=== PATIENT | male | born 1990 | race Two or more races ===

== ENCOUNTER 2024-01-15 07:37 | Outpatient (CLI) | payer OTHER | END 2024-01-15 07:45 | disposition home or self-care (01) | LOC: SONOGRAMA 07:37 | PROVIDERS: ATTEND Family Medicine | DX: R10.10 Upper abdominal pain, unspecified (principal) ==

== ENCOUNTER 2024-12-15 16:13 | Inpatient (IN) | payer OTHER ==
[~2024-12-15] VITALS: Ht 182.9 cm; Wt 104.3 kg
--- NOTE | 2024-12-15 16:16 | NUR ---
PACIENTE REFIERE FIEBRE, DOLOR DE CUERPO, DOLOR DE GARGANTA, DOLOR DE GENET, ESCALOFRIOS Y DIARREAS DESDE EL FERMIN
[2024-12-15] MEDS ORDERED: ADDERALL 20 MG20 MG PO (16:17)
--- NOTE | 2024-12-15 16:17 | NUR ---
PACIENTE CON RESULTADOS CBC WBC 20K
[2024-12-15] MEDS ORDERED: CEFTRIAXONE SODIUM 2,000 MG VIAL ONE (16:40)
[2024-12-15] MEDS ORDERED: DEXAMETHASONE SODIUM PHOSPHATE 4 MG/ML VIAL ONE (16:40)
[2024-12-15] MEDS ORDERED: ACETAMINOPHEN 500 MG GEL..CAP PO ONE ×2 (16:40→16:45)
[2024-12-15] MEDS ORDERED: CEFTRIAXONE SODIUM 2,000 MG VIAL IV ONE (16:45)
[2024-12-15] MEDS ORDERED: DEXAMETHASONE SODIUM PHOSPHATE 4 MG/ML VIAL IM ONE (16:45)
--- NOTE | 2024-12-15 17:10 | NUR ---
SE ORIENTA PTE SOBRE TX A SEGUIR, EL MISMO REFIERE ENTENDER. SE JASON MUSTRA DE LAB, SE CANALIZA Y SE ADMINISTRA VALERIE ARNOLDO ORDEN MEDICA
--- NOTE | 2024-12-15 17:11 | NUR ---
SE ORIENTA A PTE SOBRE TX MEDICO ORDENADO POR . SE REALIZA JASON DE MUESTRAS DE LAB ARNOLDO ORDEN MEDICA Y BAJO MEDIDAS ASEPTICAS. VENOPUNCION PATENTE BUSHRA DE EDEMA Y ERITEMA EN H/L BAJANDO IV FLUIDS POR REGULADOR. SE ADMINISTRAN MEDICAMENTOS ARNOLDO ORDEN MEDICA Y BAJO MEDIDAS ASEPTICAS. PTE PENDIENTE A RESULTADOS DE LAB. SE NOTIFICA ESTUDIO ORDENADO.
[2024-12-15 17:17] LABS: HEMATOCRIT 47.5 % (39.0-48.0); HEMOGLOBIN 16.2 g/dL (13-16.00); MEAN CORPUSCULAR HEMOGLOBIN 30.1 pg (27.00-32.0); MEAN CORPUSCULAR HGB CONC 34.2 g/dl (32.0-36.0); PLATELET COUNT 232 K/uL (150-450); RED CELL DISTRIBUTION WIDTH 13.3 % (11.5-14.5)
[2024-12-15 17:45] LABS: ALBUMIN 3.8 gm/dL (3.4-5.0); BILIRUBIN TOTAL 0.61 mg/dL (0.3-1.2); CALCIUM 9.5 mg/dL (8.5-10.1); CREATININE SERUM 1.09 mg/dL (0.70-1.30); GFR 77.44; GLOBULINA 4.4 G/DL (2.4-3.5); POTASSIUM 3.7 mEq/L (3.5-5.1); TOTAL PROTEIN 8.2 gm/dL (6.4-8.2)
[2024-12-15 18:31] LABS: URINE APPEARANCE Clear; URINE BILIRRUBIN Small (NEGATIVE); URINE BLOOD Negative; URINE COLOR Dark Yellow; URINE GLUCOSE Negative (NEGATIVE); URINE KETONE 15 (NEGATIVE); URINE LEUKOCYTE Negative; URINE NITRATE Negative; URINE UROBILINOGEN 0.2 E.U./dl
[2024-12-15 18:35] LABS: URINE BACTERIA 58.7 uL (0.0-1933); URINE EPITHELIAL CELLS 9.9 uL (0.0-38.8); URINE RBC 24.1 uL (0.0-20.8); URINE WBC 7.5 uL (0.0-23.2)
[2024-12-15 18:43] LABS: URINE CAST 0.14 uL (0.0-1.40); URINE PROTEIN 100 (NEGATIVE)
[2024-12-15] MEDS ORDERED: AZITHROMYCIN 500 MG in DEXTROSE 5 % IN WATER 250 ML IV SCH (19:44)
[2024-12-15] MEDS ORDERED: ONDANSETRON HCL 4 MG in 0.9 % SODIUM CHLORIDE 50 ML IV PRN (19:45)
[2024-12-15] MEDS ORDERED: FAMOTIDINE/PF 20 MG in 0.9 % SODIUM CHLORIDE 8 ML IV PUSH SCH (19:45)
[2024-12-15] MEDS ORDERED: ACETAMINOPHEN 500 MG GEL..CAP PO PRN (19:45)
[2024-12-15] MEDS ORDERED: VANCOMYCIN HCL 1,000 MG VIAL IV ONE (19:45)
[2024-12-15] MEDS ORDERED: 0.9 % SODIUM CHLORIDE 1,000 ML IV SCH (20:00)
[2024-12-15] MEDS ORDERED: AZITHROMYCIN 500 MG VIAL IV ONE (20:24)
[2024-12-15] MEDS ORDERED: VANCOMYCIN HCL 1,000 MG VIAL ONE (20:24)
[2024-12-15] MEDS ORDERED: FAMOTIDINE/PF 20 MG/2 ML VIAL ONE (20:25)
[2024-12-15 20:50] LABS: INR 1.05; PARTIAL THROMBOPLASTIN TIME 32.4 SECONDS (22.0-34.0); PROTHROMBIN TIME 11.4 SECONDS (9.0-11.5)
[2024-12-15 21:11] LABS: ABG PH 7.405 (7.35-7.45); ABG pCO2 34.9 mmHg (35-45); BASE EXCESS -2.6 mmol/l; BICARBONATE 21.3 mmol/l (23-25); Tco2 22.4 mmol/l
[2024-12-15 22:44] LABS: allen test SATISFACTORY; o2 21 %; puncture site RADIAL LEFT
[2024-12-15 23:52] VITALS: BP 120/75; O2SAT 100
[2024-12-16] MEDS ORDERED: AMPICILLIN SODIUM 2,000 MG in 0.9 % SODIUM CHLORIDE 100 ML IV SCH
[2024-12-16] MEDS ORDERED: ENOXAPARIN SODIUM 40 MG/0.4 ML SYRINGE SUBCUTANEO SCH (09:00)
[2024-12-16] MEDS ORDERED: LACTOBACILLUS ACIDOPHILUS 1 CAP CAP PO SCH (09:00)
[2024-12-16] MEDS ORDERED: AZITHROMYCIN 500 MG VIAL IV SCH (09:00)
[2024-12-16] MEDS ORDERED: CEFTRIAXONE SODIUM 2,000 MG in 0.9 % SODIUM CHLORIDE 100 ML IV SCH (09:00)
[2024-12-16 09:39] VITALS: BP 117/78; O2SAT 97
[2024-12-16] MEDS ORDERED: LACTOBACILLUS ACIDOPHILUS 1 CAP CAP PO ONE ×2 (12:09→16:27)
[2024-12-16 16:34] VITALS: BP 133/77; O2SAT 97
[2024-12-16 21:00] VITALS: BP 131/76
[2024-12-17] VITALS (11 sets, daily range): BP systolic 100–133; BP diastolic 50–85; O2SAT 90–100
[2024-12-17 07:26] LABS: HEMOGLOBIN 14.8 g/dL (13-16.00); MEAN CELL VOLUME 88.5 fL (80.0-100.00); MEAN CORPUSCULAR HEMOGLOBIN 30.5 pg (27.00-32.0); MEAN CORPUSCULAR HGB CONC 34.4 g/dl (32.0-36.0); PLATELET COUNT 245 K/uL (150-450); RED BLOOD COUNT 4.86 M/uL (4.00-6.00); RED CELL DISTRIBUTION WIDTH 13.7 % (11.5-14.5)
[2024-12-17] MEDS ORDERED: AZITHROMYCIN 500 MG VIAL IV ONE (08:18)
[2024-12-18 00:27] VITALS: O2SAT 98
[2024-12-18 03:42] VITALS: BP 101/58
[2024-12-18 05:32] LABS: HEMATOCRIT 42.5 % (39.0-48.0); HEMOGLOBIN 14.6 g/dL (13-16.00); MEAN CELL VOLUME 88.5 fL (80.0-100.00); MEAN CORPUSCULAR HEMOGLOBIN 30.5 pg (27.00-32.0); MEAN CORPUSCULAR HGB CONC 34.4 g/dl (32.0-36.0); PLATELET COUNT 255 K/uL (150-450); RED CELL DISTRIBUTION WIDTH 13.7 % (11.5-14.5)
[2024-12-18 05:40] VITALS: O2SAT 95
[2024-12-18] MEDS ORDERED: AZITHROMYCIN 500 MG VIAL IV ONE (08:21)
[2024-12-18 08:59] VITALS: O2SAT 90
[2024-12-18 09:15] VITALS: BP 112/78
[2024-12-18] MEDS ORDERED: INTESTINEX680 M1 PO (13:50)
[2024-12-18] MEDS ORDERED: ZITHROMAX500 MG PO (13:50)
== END 2024-12-18 18:15 | disposition home or self-care (01) | DRG 871 ==
LOC: ER 16:16 → SEC-K 21:37 → MEDJ 21:37 → SURH 21:37 → SEC-K 22:03 → MEDJ 12-16 16:12
PROVIDERS: General Practice; Internal Medicine Infectious Disease; ADMIT Internal Medicine; ATTEND Internal Medicine
PROC: BW28ZZZ Computerized Tomography (CT Scan) of Head (ICD-10-PCS; 2024-12-15)
PROC: BW24ZZZ Computerized Tomography (CT Scan) of Chest and Abdomen (ICD-10-PCS; 2024-12-16)
PROC: 4A12X4Z Monitoring of Cardiac Electrical Activity, External Approach (ICD-10-PCS; principal; 2024-12-17)
DX: A41.9 Sepsis, unspecified organism (principal); J15.7 Pneumonia due to Mycoplasma pneumoniae; E86.0 Dehydration; F98.8 Other specified behavioral and emotional disorders with onset usually occurring in childhood and adolescence; Z86.61 Personal history of infections of the central nervous system